=== PATIENT | female | born 1965 | race African-American/Black ===

== ENCOUNTER 2020-07-28 04:44 | Day surgery (SDC) | payer OTHER ==
[2020-07-25 14:26] VITALS: BMI 29.2
[~2020-07-28 04:44] MED LIST: LIDOCAINE HCL 1%, 10 MG/ML (20ML VIAL) NR ONE; ceFAZolin SODIUM 1 GM VIAL IVPB ONE
[2020-07-28] MEDS ORDERED: LIDOCAINE HCL 1%, 10 MG/ML (20ML VIAL) ONE ×2 (10:17→12:03)
[2020-07-28] MEDS ORDERED: BUPIVACAINE HCL 100 ML ONE (10:18)
[2020-07-28] MEDS ORDERED: LIDOCAINE HCL/PF 2% SDV 5ML VIAL ONE (11:35)
[2020-07-28] MEDS ORDERED: MIDAZOLAM HCL 2 MG/2 ML SINGLE DOSE VIAL ONE (11:36)
[2020-07-28] MEDS ORDERED: PROPOFOL 20 ML ONE (11:36)
[2020-07-28] MEDS ORDERED: ceFAZolin SODIUM 1 GM VIAL IVPB ONE (11:47)
[2020-07-28] MEDS ORDERED: ONDANSETRON 4 MG/2 ML VIAL IVPUSH PRN (11:48)
[2020-07-28] MEDS ORDERED: oxyCODONE HCL 5 MG TABLET PO PRN (11:48)
[2020-07-28] MEDS ORDERED: PROMETHAZINE HCL 25 MG/1 ML VIAL IVPUSH PRN (11:48)
[2020-07-28] MEDS ORDERED: ceFAZolin SODIUM 1 GM VIAL ONE (11:48)
[2020-07-28] MEDS ORDERED: LIDOCAINE 1%/EPI 1:100000 (20 ML MULTI DOSE VIAL) IJ ONE ×2 (12:06)
[2020-07-28 14:08] VITALS: BP 130/70; PULSE 90; TEMP 98
== END 2020-07-28 13:45 | disposition home or self-care (01) ==
LOC: JASU-SURG 04:44
PROVIDERS: ATTEND Surgery
PROC: 0HB5XZZ Excision of Chest Skin, External Approach (ICD-10-PCS; 2020-07-28)
PROC: 0JBG0ZZ Excision of Right Lower Arm Subcutaneous Tissue and Fascia, Open Approach (ICD-10-PCS; principal; 2020-07-28 10:30)
DX: D21.11 Benign neoplasm of connective and other soft tissue of right upper limb, including shoulder (principal); L72.3 Sebaceous cyst; E11.9 Type 2 diabetes mellitus without complications
CPT/HCPCS: 88304-TC; 88305-TC